=== PATIENT | female | born 2000 | race Asian ===

== ENCOUNTER 2022-01-11 10:26 | Emergency (ER) | payer OTHER ==
[~2022-01-11] VITALS: Ht 160 cm; Wt 49.9 kg
[2022-01-11 10:46] VITALS: BP 116/74
--- NOTE | 2022-01-11 11:01 | NUR ---
COVID MARISABEL SWAB DONE.
--- NOTE | 2022-01-11 11:19 | NUR ---
BIB SELF C/O COUGH, 6/10 MEANS, DIFFICULTY BREATHING , CP X 4 DAYS. DIARRHEA X 1 YEAR. COVID TESTED+ TODAY. PMH: PANCREASE TUMOR SURGERY
[2022-01-11] MEDS ORDERED: NIRM1TAB PO (14:35)
[2022-01-11] MEDS ORDERED: ONDA-188 PO (14:35)
[2022-01-11] MEDS ORDERED: PROM118S5 PO (14:35)
--- NOTE | 2022-01-11 15:30 | NUR ---
Patient left [facility], discharged by phone. Verbal after care instructions given and explained. Patient verbalized understanding of instructions. All questions addressed prior to discharge. ID band removed. Patient advised to follow up with PMD. Rx of Promethazine-DM,Zofran, Paxlovid given. Patient educated on indication of medication including possible reaction and side effects. Opportunity to ask questions provided and answered.
== END 2022-01-11 15:30 | disposition home or self-care (01) ==
LOC: MED 10:26
DX: U07.1 COVID-19 (principal); Z79.899 Other long term (current) drug therapy
CPT/HCPCS: 71045; 99284